=== PATIENT | female | born 1950 | race Hispanic/Latino ===

== ENCOUNTER 2016-08-03 11:50 | Emergency (ER) | payer OTHER, MEDICARE ==
[~2016-08-03] VITALS: Ht 157.5 cm; Wt 85.7 kg
[~2016-08-03 11:50] MED LIST: ASPIRIN CHILDRE81 MG PO; AZITHROMYCIN250 MG PO; CARDIZEM CD 12120 MG PO; CLOPIDOGREL75 MG PO; COREG 25 MG TAB25 MG PO; CRESTOR20 MG PO; ELIQUIS5 MG PO; GLUCOPHAGE500 MG PO; LANTUS100 U/ML INJ; LISINOPRIL20 MG PO; Robitussin AC PO; VICTOZA6 MG/ML INJ
[2016-08-03 11:54] VITALS: BP 164/76
[2016-08-03] MEDS ORDERED: NASONEX17 GM NASB (12:40)
[2016-08-03] MEDS ORDERED: AUGMENTIN 875-1 EACH PO (12:40)
--- NOTE | 2016-08-03 12:40 | ED HEAD/FACIAL INJ COMPLAINT ---
History of Present Illness General Chief Complaint: General Adult Stated Complaint: R SIDED FACIAL PAIN X FEW DAYS Source: patient, family (daughter), old records Exam Limitations: no limitations Vital Signs & Intake/Output Vital Signs & Intake/Output Vital Signs Date Time Temp Pulse Resp B/P Pulse O2 O2 Flow FiO2 Ox Delivery Rate 08/03 1154 97.4 91 20 164/76 97 Room Air ED Intake and Output 08/04 0000 08/03 1200 Intake Total 0 Output Total Balance 0 Intake, Oral 0 Patient 189 lb Weight Allergies Coded Allergies: MDX - TAPE (TAPE) (Mild, RASH FROM `SILK TAPE' 12/10/14) Reconcile Medications Amoxicillin/Potassium Clav (Augmentin 875-125 Tablet) 875 MG-125 MG TABLET 1 TAB PO BID SINUSITIS Apixaban (Eliquis) 5 MG TAB 5 MG PO BID BLOOD THINNER CLOPIDOGREL BISULFATE (Clopidogrel) 75 MG TABLET 75 MG PO DAILY HEART ( Reported) Diltiazem Cd (Diltiazem ER) 120 MG CAP 240 MG PO DAILY HEART RATE Insulin Glargine, Recombinan (Lantus) 100 U/ML HUGH 30 U INJ BID dm (Reported) Liraglutide (Victoza 3-Pepe) 0.6 MG/0.1 ML (18 MG/3 ML) PEN.INJCTR 12 MG INJ DAILY DIABETES (Reported) hold: change merari insulin Lisinopril 20 MG TABLET 20 MG PO BID HTN (Reported) Metformin Hydochloride (Glucophage) 500 MG TABLET 500 MG PO BID DIABETES ( Reported) Mometasone Furoate (Nasonex) 50 MCG SPRAY.PUMP 2 SPRAY NASB DAILY SINUSITIS [Robitussin AC] 10 ML PO Q4P PRN COUGH Rosuvastatin Calcium (Crestor) 20 MG TABLET 40 MG PO DAILY HLD (Reported) Triage Note: C/O RIGHT SIDE OF FACE NUMB X 3 DAYS. PT C/O NON PRODUCTIVE COUGH AND CONGESTION. NEUROS INTACT IN TRIAGE Triage Nurses Notes Reviewed? yes Onset: Abrupt Severity: moderate Severity Numbers: 5 Location: frontal Method of Injury: unknown Loss of Consciousness: no loss of consciousness Associated Symptoms: sore throat, congestion, rhinorrhea cough HPI: 66-year-old female history of hypertension and A. fib on elliquis presents emergency room with her daughter for evaluation complaining of right-sided facial pressure" aching pain and tingling for the past 3 days. She denies any facial numbness contrary to triage note. She states prior to the symptoms beginning she's been having rhinorrhea and congestion. No sick contacts. She also is reporting to a sore throat prior to all these symptoms that has since resolved. She is also complaining of a nonproductive cough no shortness of breath no chest pain nausea vomiting or diarrhea. She is not taken anything for her symptoms or soccer until today. The family denies noting any facial droop, she denies any arm or leg weakness or numbness. There's been no change in her speech no aphasia no headache no recent fall or trauma (ALEXIS SENIOR) Past History Travel History Traveled to [place] past 21 day No Medical History Any Pertinent Medical History? 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 No (ALEXIS SENIOR) Review of Systems Review of Systems Constitutional: Reports: see HPI. All Other Systems: Reviewed and Negative Comments Review of systems: See HPI, All other systems negative. Constitutional, no chills no fever, no malaise HEENT: No visual changes no sore throat no congestion, Cardiovascular: No chest pain , no palpitation Skin, no rashes, no change in skin Respiratory: No dyspnea no cough no sputum GI: No nausea no vomiting, no diarrhea, : No dysuria Muscle skeletal: No joint pain,, no back pain, no neck pain, Neurologic: no headache Psych: No stress Heme/endocrine: No bruising no bleeding Immunology: No lymphadenopathy (ALEXIS SENIOR) Physical Exam Physical Exam General Appearance: well developed/nourished, no apparent distress, alert, awake , comfortable Cranial Nerves: normal hearing, normal speech, PERRL Coordination/Gait: normal finger to nose, normal gait Motor/Sensory: no motor/sensory deficits Comments: Well-developed well-nourished patient in no apparent distress. Head/Face: Atraumatic, (+) r sided maxillary/frontal sinus tenderness, no facial swelling, no overlying erythema or rashes noted Eyes: PERRL, EOMI, no conjunctival injection. Ear:External auditory canal and Tympanic membranes clear, no erythema, no FB. Nose: atraumatic.Normal inspection: No bleeding, no septal hematoma Throat: Moist mucous membranes.Pharynx normal. No pharyngeal erythema/exudate seen. No stridor/drooling or assymetry. No swelling or edema. Neck: Supple, anterior lymphadenopathy, FROM Back: FROM, Nontender Cardiovascular: Regular rate and rhythms no murmurs rubs or gallops, Respiratory: Chest nontender.There were no bony deformities, no asymmetry. No respiratory distress. Patient speaking in full complete sentences. Breath sounds clear to auscultation bilaterally: NO W/R/R Extremities: full range of motion 5 out 5 strength bilateral upper and lower extremities Neuro: Alert and oriented x3 no focal neurologic deficits noted cranial nerves are with thin normal limits and intact Skin: Warm & dry;No appreciable rash on exposed skin Psych: Mood affect normal, normal memory normal judgment. (ALEXIS SENIOR) Progress Differential Diagnosis: ICH, sinusitis shingles TIA CVA Plan of Care: Discussed with the patient and her daughter my differential, symptoms are consistent with a sinus infection given her rhinorrhea congestion sore throat and nonproductive cough. To be treated with Augmentin Nasonex spray I discussed with them to follow with her primary care physician this week, advised return anytime sooner symptoms worsen she feels comfortable with plan. She feels comfortable with plan and all questions cleared for discharge (ALEXIS SENIOR) Departure Departure Time of Disposition: 1238 Disposition: HOME OR SELF CARE Condition: Stable Clinical Impression Primary Impression: Sinusitis Referrals: KEVIN HARDIN MD (PCP/Family) Additional Instructions: FOLLOW UP WITH YOUR PMD THIS WEEK. AUGMETIN AND NASONEX DIRECTED. THESE PRESCRIPTIONS WERE SENT TO YOUR PHARMACY. TYLENOL OR MOTRIN NEEDED. RETURN IMMEDIATELY IF SYMPTOMS WORSE OR YOU HAVE ANY OTHER CONCERNS Departure Forms: Customer Survey General Discharge Information Prescriptions: Current Visit Scripts Amoxicillin/Potassium Clav (Augmentin 875-125 Tablet) 1 TAB PO BID #20 TAB Mometasone Furoate (Nasonex) 2 SPRAY NASB DAILY #1 INHAL (ALEXIS SENIOR) PA/BRIAR WOOD SORTER Co-Sign Statement Statement: ED Attending supervision documentation- [] I saw and evaluated the patient. I have also reviewed all the pertinent lab results and diagnostic results. I agree with the findings and the plan of care as documented in the PA's/BRIAR WOOD SORTER's documentation. [X] I have reviewed the ED Record and agree with the PA's/BRIAR WOOD SORTER's documentation. [] Additions or exceptions (if any) to the PAs/BRIAR WOOD SORTER's note and plan are summarized below: [] (TIFFANIE HE,OANH)
== END 2016-08-03 12:43 ==
LOC: ERH 11:50
DX: J32.9 Chronic sinusitis, unspecified (principal)